=== PATIENT | male | born 1975 | race Native Hawaiian/Other Pacific Islander ===

== ENCOUNTER 2016-11-26 10:29 | Emergency (ER) | payer SELFPAY ==
--- NOTE | 2016-11-26 12:12 | RAD ---
HISTORY: Left lower quadrant abdominal pain COMPARISONS: None VIEWS: Frontal views of the abdomen. FINDINGS: BOWEL: There is a nonspecific bowel gas pattern, with nondilated small bowel gas noted. There is a large amount of stool within the colon. CALCULI: There are no abnormal calculi. BONES AND SOFT TISSUES: There are no osseous abnormalities. OTHER FINDINGS: The lung bases are clear. There is no subphrenic gas. IMPRESSION: NONSPECIFIC BOWEL GAS PATTERN. LARGE AMOUNT OF STOOL WITHIN THE COLON.
--- NOTE | 2016-11-26 12:25 | UC ---
Abdominal Pain Male HPI - HPI Summary HPI Summary: 40 yo male with abd pain radiating to back x 1 month no n/v/d no wt change some dyspepsia constipation no diarrhea - History of Current Complaint Chief Complaint: UCAbdominalPain Stated Complaint: BACK PAIN Time Seen by Provider: 11/26/16 11:15 Hx Obtained From: Patient Onset/Duration: Gradual Onset, Lasting Weeks Timing: Constant Severity Initially: Mild Severity Currently: Moderate Pain Intensity: 6 Pain Scale Used: 0-10 Numeric Location: Other - LLQ Radiates: Yes Radiates to: Back Character: Burning, Cramping Aggravating Factor(s):: Movement Alleviating Factor(s): Nothing Associated Signs And Symptoms: Positive: Constipation - Allergies/Home Medications Allergies/Adverse Reactions: Allergies Allergy/AdvReac Type Severity Reaction Status Date / Time No Known Allergies Allergy Verified 11/26/16 11:18 Home Medications: Home Medications Diclofenac Sodium [Dyloject] 1 dose IM ONCE PRN 11/26/16 [History Confirmed 10/08] PMH/Surg Hx/FS Hx/Imm Hx Previously Healthy: Yes - Surgical History Surgical History: None - Family History Known Family History: Positive: Unknown - Social History Alcohol Use: Rare Substance Use Type: None Smoking Status (MU): Never Smoked Tobacco - Immunization History Most Recent Tetanus Shot: 2014 Review of Systems Constitutional: Negative Skin: Negative Eyes: Negative ENT: Negative Respiratory: Negative Cardiovascular: Negative Gastrointestinal: Abdominal Pain Genitourinary: Negative Motor: Negative Neurovascular: Negative Musculoskeletal: Negative Neurological: Negative Psychological: Negative All Other Systems Reviewed And Are Negative: Yes Physical Exam Triage Information Reviewed: Yes Appearance: Well-Appearing, No Pain Distress, Well-Nourished Vital Signs: Initial Vital Signs Temp 97.5 F 11/26/16 10:39 Pulse 55 11/26/16 10:39 Resp 14 11/26/16 10:39 BP 130/86 11/26/16 10:39 Pulse Ox 100 11/26/16 10:39 Eyes: Positive: Conjunctiva Clear ENT: Positive: Hearing grossly normal. Negative: Nasal congestion, Nasal drainage, Tonsillar exudate, Trismus, Muffled/hoarse voice Neck: Positive: Supple, Nontender Respiratory: Positive: Lungs clear, Normal breath sounds, No respiratory distress Cardiovascular: Positive: RRR, No Murmur Abdomen Description: Positive: Nontender. Negative: No Organomegaly, CVA Tenderness (R), CVA Tenderness (L), Distended, Guarding, Hepatomegaly Musculoskeletal: Positive: ROM Intact, No Edema Neurological Exam: Normal Neurological: Positive: Alert Psychological Exam: Normal Skin Exam: Normal Abd Pain Male Course/Dx - Differential Dx/Clinical Impression Provider Diagnoses: contipation Discharge - Discharge Plan Condition: Stable Disposition: HOME Prescriptions: Polyethylene Glycol 3350 BTL* [Miralax] 17 gm PO DAILY #1 btl Patient Education Materials: Constipation (ED), Abdominal Pain (ED) Print Language: VINCENTIAN Referrals: Non Staff,Doctor [Medical Doctor] - No Primary Care Phys,NOPCP [Primary Care Provider] - Additional Instructions: recheck for worsening symptoms TO ER FOR fever or worsening pain vomiting take miralax as directed
[2016-11-26 12:54] VITALS: BP 127/82
== END 2016-11-26 12:57 | disposition home or self-care (01) ==
LOC: UCCORT 10:29
DX: K59.00 Constipation, unspecified (principal); R10.13 Epigastric pain
CPT/HCPCS: 74020; 81003; 87086; 87491; 87591; 99212; G0463